=== PATIENT | female | born 1950 | race African-American/Black ===

== ENCOUNTER 2016-07-26 08:42 | Emergency (ER) | payer MEDICARE ==
[~2016-07-26] VITALS: Ht 172.7 cm; Wt 81.0 kg
[~2016-07-26 08:42] MED LIST: BENA40TA3 PO; CLON0.2T PO; DICL75TA5 PO; LOSA50TA20 PO; LOVA20TA2 PO; METO-298 PO; MISO200T PO; OXYB5TAB11 PO; TRAM50TA3 PO
[2016-07-26 09:29] VITALS: BP 151/69
[2016-07-26] MEDS ORDERED: ONDANSETRON 4MG ODT PO ONE (10:00)
== END 2016-07-26 11:19 | disposition home or self-care (01) ==
LOC: ER 09:10
DX: R11.0 Nausea (principal); R42 Dizziness and giddiness; R53.1 Weakness; I10 Essential (primary) hypertension
CPT/HCPCS: 99283; Q0162